=== PATIENT | male | born 1945 | race Two or more races ===

== ENCOUNTER 2020-03-20 14:51 | Inpatient (IN) | payer MEDICARE, MEDICAID ==
[~2020-03-20] VITALS: Ht 170.2 cm; Wt 69.9 kg
[2020-03-20] MEDS ORDERED: ATOR40TA70 PO (14:58)
[2020-03-20] MEDS ORDERED: ASPI-1497 PO (14:58)
[2020-03-20] MEDS ORDERED: HYDR12.54 PO (14:58)
[2020-03-20] MEDS ORDERED: LISI-186 PO (14:58)
[2020-03-20] MEDS ORDERED: ASPIRIN 81MG TABLET PO ONE (15:30)
[2020-03-20] MEDS ORDERED: NITROGLYCERIN 0.4MG TABLET SL SL PRN (15:30)
[2020-03-20 15:43] LABS: BASOPHILS % 0.9 % (0.0-2.0); EOSINOPHILS % 3.1 % (0.0-5.0); HEMATOCRIT. 35.3 % (42.0-52.0); HEMOGLOBIN. 11.6 g/dL (14.0-18.0); LYMPHOCYTES % 24.7 % (20.0-50.0); MEAN CORPUSCULAR HEMOGLOBIN 26.4 pg (28.0-32.0); MEAN CORPUSCULAR VOLUME 80.5 fL (80.0-94.0); MEAN PLATELET VOLUME 8.1 fl (7.4-10.4); MONOCYTES % 6.9 % (2.0-8.0); NEUTROPHILS % 64.4 % (40.0-76.0); PLATELET 179 x1000/uL (130-400); RED BLOOD CELL COUNT 4.38 mill/uL (4.7-6.1); RED CELL DISTRIBUTION WIDTH 14.1 % (11.6-14.6)
[2020-03-20 15:50] LABS: PROTHROMBIN TIME 10.3 sec (9.6-11.0)
[2020-03-20 15:52] LABS: CHLORIDE 108 mEq/L (98-107)
[2020-03-20] MEDS ORDERED: METOPROLOL TARTRATE 25MG TABLET PO SCH (18:00)
[2020-03-20] MEDS ORDERED: DOCUSATE SODIUM 100MG CAPSULE PO PRN (22:45)
[2020-03-20] MEDS ORDERED: MAGNESIUM/ALUMINUM HYDROXIDE/SIMETHICONE 30ML UDC PO PRN (22:45)
[2020-03-20] MEDS ORDERED: ACETAMINOPHEN 325MG TABLET PO PRN (22:45)
[2020-03-20] MEDS ORDERED: IPRATROPIUM/ALBUTEROL 0.5-3(2.5)MG/3ML NEB NEB PRN (22:45)
[2020-03-20] MEDS ORDERED: ONDANSETRON HCL 4MG/2ML INJ IV PRN (22:45)
[2020-03-21] VITALS (17 sets, daily range): BP systolic 123–166; BP diastolic 50–74
[2020-03-21] MEDS: ATORVASTATIN CALCIUM 40MG TABLET PO SCH ×2 (00:48→21:27)
[2020-03-21] MEDS ORDERED: SODIUM CHLORIDE 0.9% 1,000 ML IV SCH (04:00)
[2020-03-21 06:26] LABS: CLARITY URINE CLEAR (CLEAR); COLOR URINE YELLOW (YELLOW); KETONES URINE NEGATIVE (NEGATIVE); LEUKOCYTE ESTERASE URINE NEGATIVE (NEGATIVE); NITRITE URINE NEGATIVE (NEGATIVE); OCCULT BLOOD URINE NEGATIVE (NEGATIVE); PH URINE 5.5 (4.5-8.0); PROTEIN URINE 1+ (NEGATIVE); SPECIFIC GRAVITY URINE 1.015 (1.005-1.030); UROBILINOGEN URINE 0.2 E.U./dL (0.2-1.0)
[2020-03-21 06:31] LABS: EOSINOPHILS % 4.9 % (0.0-5.0); HEMATOCRIT. 32.7 % (42.0-52.0); HEMOGLOBIN. 10.9 g/dL (14.0-18.0); LYMPHOCYTES % 28.6 % (20.0-50.0); MEAN CORPUSCULAR HEMOGLOBIN 26.5 pg (28.0-32.0); MEAN CORPUSCULAR VOLUME 79.6 fL (80.0-94.0); MONOCYTES % 8.7 % (2.0-8.0); NEUTROPHILS % 56.8 % (40.0-76.0); RED BLOOD CELL COUNT 4.11 mill/uL (4.7-6.1); RED CELL DISTRIBUTION WIDTH 14.2 % (11.6-14.6)
[2020-03-21 06:35] LABS: *AMPHETAMINES SCREEN URINE NEGATIVE (NEGATIVE); *BARBITURATES SCREEN URINE NEGATIVE (NEGATIVE); *BENZODIAZEPINES SCREEN URINE NEGATIVE (NEGATIVE); *COCAINE SCREEN URINE NEGATIVE (NEGATIVE); METHADONE URINE SCREEN NEGATIVE (NEGATIVE); OPIATES URINE SCREEN NEGATIVE (NEGATIVE)
[2020-03-21 06:36] LABS: CANNABINOID URINE SCREEN NEGATIVE (NEGATIVE); PHENCYCLIDINE URINE SCREEN NEGATIVE (NEGATIVE)
[2020-03-21 06:42] LABS: CHLORIDE 108 mEq/L (98-107)
[2020-03-21 06:49] LABS: LDL CHOLESTEROL 85 mg/dL (5-100)
[2020-03-21 06:51] LABS: CREATINE KINASE 111 IU/L (39-308); HDL CHOLESTEROL 36 mg/dL (40-59)
[2020-03-21 06:55] LABS: CREATINE KINASE MB FRACTION 1.4 ng/mL (0.5-3.6)
[2020-03-21] MEDS ORDERED: FENTANYL CITRATE/PF 50MCG/ML 5ML VIAL ONE (07:49)
[2020-03-21] MEDS ORDERED: MIDAZOLAM HCL 5 MG/5 ML VIAL ONE (07:49)
[2020-03-21] MEDS ORDERED: LIDOCAINE HCL 1% 20ML VIAL (Pyxis) INJ ONE (07:49)
[2020-03-21] MEDS ORDERED: IODIXANOL 320MG/ML 100 ML BOTTLE IV ONE (07:50)
[2020-03-21] MEDS ORDERED: VERAPAMIL HCL 2.5 MG/1 ML 2ML VIAL IV ONE (07:51)
[2020-03-21 08:15] LABS: PLATELET 157 x1000/uL (130-400)
[2020-03-21] MEDS ORDERED: LOSA25TA26 MT (09:08)
[2020-03-21] MEDS ORDERED: HYDR12.54 MT (09:08)
[2020-03-21] MEDS ORDERED: ATOR20TA65 MT (09:08)
[2020-03-21] MEDS: ASPIRIN 81MG EC TABLET PO SCH (09:17)
[2020-03-21] MEDS: SODIUM CHLORIDE 0.45% 1,000 ML IV SCH ×2 (09:32→18:39)
[2020-03-21 15:12] LABS: CREATINE KINASE 101 IU/L (39-308); CREATINE KINASE MB FRACTION 1.4 ng/mL (0.5-3.6)
[2020-03-21] MEDS ORDERED: CLONIDINE 0.1MG TABLET PO PRN (22:00)
[2020-03-22] VITALS (32 sets, daily range): BP systolic 112–181; BP diastolic 58–82
[2020-03-22] MEDS: SODIUM CHLORIDE 0.45% 1,000 ML IV SCH ×2 (02:53→09:49)
[2020-03-22 05:53] LABS: BASOPHILS % 0.9 % (0.0-2.0); EOSINOPHILS % 4.8 % (0.0-5.0); HEMATOCRIT. 32.3 % (42.0-52.0); HEMOGLOBIN. 10.8 g/dL (14.0-18.0); LYMPHOCYTES % 31.8 % (20.0-50.0); MEAN CORPUSCULAR HEMOGLOBIN 26.5 pg (28.0-32.0); MEAN CORPUSCULAR VOLUME 79.7 fL (80.0-94.0); MEAN PLATELET VOLUME 8.6 fl (7.4-10.4); MONOCYTES % 8.1 % (2.0-8.0); NEUTROPHILS % 54.4 % (40.0-76.0); PLATELET 151 x1000/uL (130-400); RED BLOOD CELL COUNT 4.06 mill/uL (4.7-6.1); RED CELL DISTRIBUTION WIDTH 13.9 % (11.6-14.6)
[2020-03-22 06:01] LABS: CHLORIDE 108 mEq/L (98-107)
[2020-03-22 06:07] LABS: PHOSPHORUS 3.8 mg/dL (2.5-4.9)
[2020-03-22] MEDS: ASPIRIN 81MG EC TABLET PO SCH (07:27)
[2020-03-22] MEDS ORDERED: ENOXAPARIN 30MG/0.3ML SYR SUBCUT SCH (09:00)
[2020-03-22] MEDS ORDERED: ENOXAPARIN 60MG/0.6ML SYR SUBCUT NR (10:30)
[2020-03-22] MEDS: PANTOPRAZOLE 40MG DR TABLET PO SCH (11:01)
[2020-03-22] MEDS: NITROGLYCERIN OINT 1GM/INCH UDPKT TD SCH ×2 (11:02→16:56)
[2020-03-22] MEDS ORDERED: EPOETIN ALFA-EPBX 10,000 UNIT/ML VIAL SUBCUT NR (14:00)
[2020-03-22] MEDS: ATORVASTATIN CALCIUM 40MG TABLET PO SCH (20:51)
[2020-03-23] VITALS (49 sets, daily range): BP systolic 101–179; BP diastolic 54–97
[2020-03-23] MEDS: NITROGLYCERIN OINT 1GM/INCH UDPKT TD SCH ×5 (00:05→22:04)
[2020-03-23 06:15] LABS: BASOPHILS % 0.7 % (0.0-2.0); HEMATOCRIT. 32.7 % (42.0-52.0); HEMOGLOBIN. 10.9 g/dL (14.0-18.0); LYMPHOCYTES % 28.3 % (20.0-50.0); MEAN CORPUSCULAR HEMOGLOBIN 26.7 pg (28.0-32.0); MEAN CORPUSCULAR VOLUME 80.1 fL (80.0-94.0); MEAN PLATELET VOLUME 8.2 fl (7.4-10.4); MONOCYTES % 8.8 % (2.0-8.0); NEUTROPHILS % 58.2 % (40.0-76.0); PLATELET 161 x1000/uL (130-400); RED BLOOD CELL COUNT 4.09 mill/uL (4.7-6.1)
[2020-03-23 06:27] LABS: PHOSPHORUS 3.5 mg/dL (2.5-4.9)
[2020-03-23] MEDS: ASPIRIN 81MG EC TABLET PO SCH (08:37)
[2020-03-23] MEDS: PANTOPRAZOLE 40MG DR TABLET PO SCH (08:38)
[2020-03-23] MEDS ORDERED: ENOXAPARIN 80MG/0.8ML SYR SUBCUT SCH (09:00)
[2020-03-23] MEDS: AMLODIPINE 10MG TABLET PO SCH (12:02)
[2020-03-23] MEDS ORDERED: ACETAMINOPHEN 325MG TABLET PO PRN (18:45)
[2020-03-23] MEDS ORDERED: HEPARIN 25,000 UNITS PREMIX 250 ML IV SCH ×2 (18:45→19:15)
[2020-03-23] MEDS ORDERED: HEPARIN BOLUS PRN aPTT <30 IV (19:15)
[2020-03-23] MEDS ORDERED: HEPARIN BOLUS PRN aPTT 30-44 IV (19:15)
[2020-03-23] MEDS ORDERED: HEPARIN 60 UNITS/KG BOLUS IV NR (19:30)
[2020-03-23] MEDS ORDERED: CHLORHEXIDINE GLUCONATE 4% EXTERNAL USE TOP SCH (21:00)
[2020-03-23] MEDS ORDERED: ASCORBIC ACID 500 MG TABLET PO SCH (21:00)
[2020-03-23] MEDS ORDERED: DOCUSATE SODIUM 100MG CAPSULE PO SCH (21:00)
[2020-03-23] MEDS ORDERED: BISACODYL 10MG SUPP PR PRN (21:00)
[2020-03-23] MEDS: ATORVASTATIN CALCIUM 40MG TABLET PO SCH (21:42)
[2020-03-23] MEDS: HYDRALAZINE HCL 50MG TABLET PO SCH (21:42)
[2020-03-23] MEDS: ALLOPURINOL 300 MG TABLET PO SCH (21:43)
[2020-03-24] VITALS (59 sets, daily range): BP systolic 83–185; BP diastolic 35–119
[2020-03-24] MEDS: NITROGLYCERIN OINT 1GM/INCH UDPKT TD SCH ×2 (04:57→08:52)
[2020-03-24] MEDS: ALLOPURINOL 300 MG TABLET PO SCH (04:57)
[2020-03-24 05:11] LABS: *CREATININE RANDOM URINE 36.5 mg/dL (Not Estab.); MICROALBUMIN RANDOM URINE 106.9 ug/mL (Not Estab.)
[2020-03-24 05:27] LABS: BASOPHILS % 0.7 % (0.0-2.0); EOSINOPHILS % 3.7 % (0.0-5.0); HEMATOCRIT. 34.7 % (42.0-52.0); HEMOGLOBIN. 11.4 g/dL (14.0-18.0); LYMPHOCYTES % 27.3 % (20.0-50.0); MEAN CORPUSCULAR HEMOGLOBIN 26.5 pg (28.0-32.0); MEAN CORPUSCULAR VOLUME 80.4 fL (80.0-94.0); MEAN PLATELET VOLUME 8.6 fl (7.4-10.4); MONOCYTES % 8.3 % (2.0-8.0); PLATELET 151 x1000/uL (130-400); RED BLOOD CELL COUNT 4.32 mill/uL (4.7-6.1); RED CELL DISTRIBUTION WIDTH 14.5 % (11.6-14.6)
[2020-03-24 05:34] LABS: CHLORIDE 107 mEq/L (98-107)
[2020-03-24] MEDS ORDERED: SKIN ADHESIVE 0.7 GM EA TOP ONE (05:58)
[2020-03-24] MEDS ORDERED: THROMBIN (BOVINE) 5000 UNITS/VIAL TOP ONE (05:58)
[2020-03-24] MEDS ORDERED: BACITRACIN 50,000 UNITS/VIAL ONE (05:59)
[2020-03-24] MEDS ORDERED: NICARDIPINE 50 MG in NS 250 ML IV SCH (06:00)
[2020-03-24] MEDS ORDERED: PAPAVERINE HCL 180MG in SODIUM CHLORIDE 0.9% 24ML IV SCH (06:00)
[2020-03-24] MEDS ORDERED: AMINOCAPROIC ACID 5,000 MG in SODIUM CHLORIDE 0.9% 230 ML IV SCH (06:00)
[2020-03-24] MEDS ORDERED: EPINEPHRINE 5 MG in DEXT 5% WATER 245 ML IV SCH (06:00)
[2020-03-24] MEDS ORDERED: CEFAZOLIN 2,000 MG in DEXT 5% WATER 100 ML IV SCH (06:00)
[2020-03-24] MEDS ORDERED: DEL NIDO ELECTROLYTE-S(PH 7.4) 1,000 ML IV SCH ×2 (06:00)
[2020-03-24] MEDS ORDERED: INSULIN REGULAR (DRIP) 100 UNITS in SODIUM CHLORIDE 0.9% 99 ML IV SCH (06:00)
[2020-03-24] MEDS ORDERED: NOREPINEPHRINE 8 MG in DEXT 5% WATER 242 ML IV SCH (06:00)
[2020-03-24] MEDS ORDERED: HEPARIN 1000 UNITS/ML 10ML ONE ×2 (06:03→08:00)
[2020-03-24] MEDS ORDERED: ACETAMINOPHEN 500MG TABLET ONE (06:04)
[2020-03-24] MEDS ORDERED: DOPAMINE 400MG/250ML PREMIX 250 ML IV ONE (06:04)
[2020-03-24] MEDS ORDERED: ROCURONIUM BROMIDE 10MG/ML VIAL 5ML IV ONE ×2 (06:32→09:38)
[2020-03-24] MEDS ORDERED: PROPOFOL 200MG/20ML VIAL IV ONE (06:32)
[2020-03-24] MEDS ORDERED: MIDAZOLAM HCL 5 MG/ML VIAL ONE (06:33)
[2020-03-24] MEDS ORDERED: HYDROMORPHONE HCL/PF 2MG/ML (OR) ONE ×2 (06:33→08:10)
[2020-03-24] MEDS ORDERED: DEXAMETHASONE 4MG/ML 1ML VIAL ONE (06:33)
[2020-03-24] MEDS ORDERED: POTASSIUM CHLORIDE 40MEQ/20ML INJ IV ONE (07:01)
[2020-03-24] MEDS ORDERED: CEFAZOLIN SODIUM 1000MG/VIAL ONE (07:33)
[2020-03-24] MEDS ORDERED: PROPOFOL 10MG/ML 100ML 100 ML IV ONE (07:58)
[2020-03-24] MEDS ORDERED: MAGNESIUM SULFATE 5GM/10ML VIAL IV ONE (08:00)
[2020-03-24] MEDS ORDERED: LIDOCAINE HCL 2% 5ML SYRINGE IV ONE (08:00)
[2020-03-24] MEDS ORDERED: HEPARIN 10,000 UNITS/ML VIAL ONE (08:00)
[2020-03-24] MEDS ORDERED: MANNITOL 20% (20GM/100ML) BAG 500ML PREMIX IV ONE (08:00)
[2020-03-24] MEDS ORDERED: ALBUMIN HUMAN 25GM/100ML (25%) IV ONE (08:00)
[2020-03-24] MEDS ORDERED: AMINOCAPROIC ACID 250 MG/ML 20ML VIAL ONE ×2 (08:00→09:56)
[2020-03-24] MEDS ORDERED: CALCIUM CHLORIDE 1GM/10ML SYR IV ONE ×2 (08:00→11:24)
[2020-03-24] MEDS ORDERED: ALBUMIN HUMAN 25GM/500ML (5%) IV ONE (08:00)
[2020-03-24] MEDS ORDERED: SODIUM BICARBONATE 8.4% 1 MEQ/ML 50ML SYR IV ONE ×2 (08:00→15:51)
[2020-03-24] MEDS ORDERED: METHYLENE BLUE 50 MG/10 ML AMP IV ONE (08:10)
[2020-03-24] MEDS ORDERED: SODIUM CHLORIDE 0.9% 10ML VIAL ONE (08:27)
[2020-03-24] MEDS: AMLODIPINE 10MG TABLET PO SCH (08:52)
[2020-03-24] MEDS: ASPIRIN 81MG EC TABLET PO SCH (08:52)
[2020-03-24] MEDS: HYDRALAZINE HCL 50MG TABLET PO SCH (08:52)
[2020-03-24] MEDS: PANTOPRAZOLE 40MG DR TABLET PO SCH (08:52)
[2020-03-24] MEDS ORDERED: CHLORHEXIDINE GLUCONATE 4% EXTERNAL USE TOP SCH (09:00)
[2020-03-24] MEDS ORDERED: FUROSEMIDE 100MG/10ML VIAL ONE (09:38)
[2020-03-24] MEDS ORDERED: PROTAMINE SULFATE 10MG/ML VIAL 25ML IV ONE (11:24)
[2020-03-24 12:53] LABS: MEAN CORPUSCULAR HEMOGLOBIN 26.4 pg (28.0-32.0); MEAN CORPUSCULAR VOLUME 80.6 fL (80.0-94.0); MEAN PLATELET VOLUME 7.9 fl (7.4-10.4); PLATELET 102 x1000/uL (130-400); RED BLOOD CELL COUNT 2.51 mill/uL (4.7-6.1); RED CELL DISTRIBUTION WIDTH 14.1 % (11.6-14.6)
[2020-03-24 12:59] LABS: CHLORIDE 120 mEq/L (98-107)
[2020-03-24 13:03] LABS: HEMOGLOBIN. 6.6 g/dL (14.0-18.0)
[2020-03-24 13:04] LABS: HEMATOCRIT. 20.2 % (42.0-52.0)
[2020-03-24] MEDS ORDERED: OXYCODONE HCL/ACETAMINOPHEN 5/325MG TABLET PO PRN ×2 (13:15)
[2020-03-24] MEDS ORDERED: MAGNESIUM 2 G PREMIX 50 ML IV PRN (13:15)
[2020-03-24] MEDS ORDERED: NOREPINEPHRINE 8 MG in DEXT 5% WATER 242 ML IV PRN (13:15)
[2020-03-24] MEDS ORDERED: ALBUMIN HUMAN 12.5G/250ML (5%) IV PRN (13:15)
[2020-03-24] MEDS ORDERED: MAGNESIUM SULFATE 3 GM in DEXT 5% WATER 100 ML IV PRN (13:15)
[2020-03-24] MEDS ORDERED: ACETAMINOPHEN 325MG TABLET PO PRN (13:15)
[2020-03-24] MEDS ORDERED: MAGNESIUM 1 G PREMIX 100 ML IV PRN (13:15)
[2020-03-24] MEDS ORDERED: MORPHINE SULFATE 2 MG/ML CPJ (NOT FOR IM USE) IV PRN (13:15)
[2020-03-24] MEDS ORDERED: ONDANSETRON HCL 4MG/2ML INJ IV PRN (13:15)
[2020-03-24] MEDS ORDERED: SODIUM CHLORIDE 0.9% 500 ML IV PRN (13:15)
[2020-03-24] MEDS ORDERED: KCL 10MEQ/50ML PREMIX 200 ML IV PRN (13:30)
[2020-03-24] MEDS ORDERED: KCL 10MEQ/50ML PREMIX 100 ML IV PRN (13:30)
[2020-03-24] MEDS ORDERED: KCL 10MEQ/50ML PREMIX 150 ML IV PRN (13:30)
[2020-03-24 13:42] LABS: BG BASE EXCESS -1.8 mmol/L (-2.0-2.0); BG CARBOXYHEMOGLOBIN 0.4 % (0.5-1.5); BG DEOXYHEMOGLOBIN 1.6 % (0.0-5.0); BG FRACTION INSPIRED OXYGEN 100; BG HCO3 ACT 24.4 mmol/L (22.0-26.0); BG METHEMOGLOBIN 0.6 % (0.0-1.5); BG OXYGEN SATURATION 98.4 % (92.0-98.5); BG OXYHEMOGLOBIN 97.4 % (94.0-97.0); BG PCO2 49.1 mmHg (35.0-45.0); BG PH 7.314 (7.350-7.450); BG PO2 143.2 mmHg (75.0-100.0); BG SAMPLE SITE ALINE; BG TOTAL HEMOGLOBIN 8.2 g/dL (12.0-18.0); BG TOTAL RESPIRATORY RATE 12 b/min; BG VENT MODE VENT - SIMV
[2020-03-24 13:43] LABS: INR 1.3; PROTHROMBIN TIME 13.3 sec (9.6-11.0)
[2020-03-24 13:50] LABS: PHOSPHORUS 0.7 mg/dL (2.5-4.9)
[2020-03-24 13:53] LABS: BASOPHILS % 0.2 % (0.0-2.0); EOSINOPHILS % 0.1 % (0.0-5.0); HEMATOCRIT. 24.1 % (42.0-52.0); LYMPHOCYTES % 8.1 % (20.0-50.0); MEAN CORPUSCULAR HEMOGLOBIN 26.6 pg (28.0-32.0); MEAN CORPUSCULAR VOLUME 80.3 fL (80.0-94.0); NEUTROPHILS % 88.6 % (40.0-76.0); PLATELET 115 x1000/uL (130-400); RED CELL DISTRIBUTION WIDTH 14.2 % (11.6-14.6)
[2020-03-24 13:59] LABS: PLATELET ESTIMATE DECREASED
[2020-03-24] MEDS ORDERED: CALCIUM GLUCONATE 1,000 MG in DEXT 5% WATER 90 ML IV PRN (14:00)
[2020-03-24 14:02] LABS: INR 1.1; PARTIAL THROMBOPLASTIN TIME 32.2 sec (23.4-31.0); PROTHROMBIN TIME 11.4 sec (9.6-11.0)
[2020-03-24] MEDS: DEXT 5%/0.45% NACL 1000ML 1,000 ML IV SCH (14:17)
[2020-03-24] MEDS: DOPAMINE 400MG/250ML PREMIX 250 ML IV PRN (14:22)
[2020-03-24 15:11] LABS: A/G RATIO 1.1 (0.7-1.7); ALBUMIN 3.3 g/dL (2.9-4.4); ALPHA-1-GLOBULIN 0.2 g/dL (0.0-0.4); ALPHA-2-GLOBULIN 0.7 g/dL (0.4-1.0); BETA GLOBULIN 1.1 g/dL (0.7-1.3); M-SPIKE Not Observed g/dL (Not Observed); TOTAL PROTEIN SERUM 6.3 g/dL (6.0-8.5)
[2020-03-24] MEDS: CEFAZOLIN 1000MG PREMIX 50 ML IV SCH (15:30)
[2020-03-24] MEDS ORDERED: CEFAZOLIN 1000MG PREMIX 50 ML IV SCH (15:30)
[2020-03-24 15:40] LABS: BG BASE EXCESS -4.1 mmol/L (-2.0-2.0); BG CARBOXYHEMOGLOBIN 0.3 % (0.5-1.5); BG DEOXYHEMOGLOBIN 1.2 % (0.0-5.0); BG FRACTION INSPIRED OXYGEN 100; BG HCO3 ACT 21.3 mmol/L (22.0-26.0); BG METHEMOGLOBIN 0.2 % (0.0-1.5); BG OXYGEN SATURATION 98.8 % (92.0-98.5); BG OXYHEMOGLOBIN 98.3 % (94.0-97.0); BG PH 7.344 (7.350-7.450); BG PO2 235.4 mmHg (75.0-100.0); BG SAMPLE SITE ALINE; BG TOTAL HEMOGLOBIN 9.1 g/dL (12.0-18.0); BG VENT MODE VENT - SIMV
[2020-03-24] MEDS ORDERED: SODIUM BICARBONATE 8.4% 1 MEQ/ML 50ML SYR IV NR (15:45)
[2020-03-24] MEDS: IPRATROPIUM/ALBUTEROL 0.5-3(2.5)MG/3ML NEB HHN SCH ×2 (15:49→20:27)
[2020-03-24 16:27] LABS: BG BASE EXCESS 3.5 mmol/L (-2.0-2.0); BG CARBOXYHEMOGLOBIN 0.3 % (0.5-1.5); BG DEOXYHEMOGLOBIN 2.2 % (0.0-5.0); BG FRACTION INSPIRED OXYGEN 60; BG HCO3 ACT 28.8 mmol/L (22.0-26.0); BG METHEMOGLOBIN 0.3 % (0.0-1.5); BG OXYGEN SATURATION 97.8 % (92.0-98.5); BG OXYHEMOGLOBIN 97.2 % (94.0-97.0); BG PH 7.396 (7.350-7.450); BG PO2 118.5 mmHg (75.0-100.0); BG SAMPLE SITE ALINE; BG TOTAL HEMOGLOBIN 8.3 g/dL (12.0-18.0); BG VENT MODE VENT - SIMV
[2020-03-24] MEDS ORDERED: DOCUSATE SODIUM 100MG CAPSULE PO SCH (17:00)
[2020-03-24 17:39] LABS: BG BASE EXCESS 0.3 mmol/L (-2.0-2.0); BG CARBOXYHEMOGLOBIN 0.3 % (0.5-1.5); BG DEOXYHEMOGLOBIN 4.3 % (0.0-5.0); BG FRACTION INSPIRED OXYGEN 40; BG HCO3 ACT 25.1 mmol/L (22.0-26.0); BG METHEMOGLOBIN 0.2 % (0.0-1.5); BG OXYGEN SATURATION 95.7 % (92.0-98.5); BG OXYHEMOGLOBIN 95.2 % (94.0-97.0); BG PCO2 41.2 mmHg (35.0-45.0); BG PH 7.403 (7.350-7.450); BG PO2 86.2 mmHg (75.0-100.0); BG SAMPLE SITE ALINE; BG TOTAL HEMOGLOBIN 8.5 g/dL (12.0-18.0); BG VENT MODE VENT - CPAP
[2020-03-24] MEDS: MAGNESIUM HYDROXIDE 400MG/5ML 30ML UDC PO SCH ×2 (18:00→20:00)
[2020-03-24 19:25] LABS: HEMOGLOBIN. 8.8 g/dL (14.0-18.0); MEAN CORPUSCULAR HEMOGLOBIN 27.5 pg (28.0-32.0); MEAN CORPUSCULAR VOLUME 81.3 fL (80.0-94.0); MEAN PLATELET VOLUME 8.5 fl (7.4-10.4); PLATELET 120 x1000/uL (130-400); RED CELL DISTRIBUTION WIDTH 14.7 % (11.6-14.6)
[2020-03-24 19:57] LABS: PHOSPHORUS 3.2 mg/dL (2.5-4.9)
[2020-03-24 20:08] LABS: PLATELET ESTIMATE DECREASED
[2020-03-24] MEDS: DOCUSATE SODIUM 100MG CAPSULE PO SCH (21:00)
[2020-03-25] VITALS (88 sets, daily range): BP systolic 48–165; BP diastolic 13–66
[2020-03-25] MEDS: MAGNESIUM HYDROXIDE 400MG/5ML 30ML UDC PO SCH ×6 (00:04→21:42)
[2020-03-25] MEDS: IPRATROPIUM/ALBUTEROL 0.5-3(2.5)MG/3ML NEB HHN SCH ×6 (00:33→20:54)
[2020-03-25] MEDS: HYDROCODONE/ACETAMINOPHEN 5/325MG TABLET PO PRN ×3 (01:02→13:08)
[2020-03-25 06:09] LABS: PHOSPHORUS 4.5 mg/dL (2.5-4.9)
[2020-03-25 06:32] LABS: BASOPHILS % 0.1 % (0.0-2.0); HEMATOCRIT. 28.2 % (42.0-52.0); HEMOGLOBIN. 9.2 g/dL (14.0-18.0); LYMPHOCYTES % 9.9 % (20.0-50.0); MEAN CORPUSCULAR HEMOGLOBIN 27.7 pg (28.0-32.0); MEAN CORPUSCULAR VOLUME 84.5 fL (80.0-94.0); MEAN PLATELET VOLUME 9.2 fl (7.4-10.4); PLATELET 125 x1000/uL (130-400); RED BLOOD CELL COUNT 3.34 mill/uL (4.7-6.1); RED CELL DISTRIBUTION WIDTH 15.8 % (11.6-14.6)
[2020-03-25] MEDS: CEFAZOLIN 1000MG PREMIX 50 ML IV SCH ×2 (07:14)
[2020-03-25 08:42] LABS: BG BASE EXCESS -2.9 mmol/L (-2.0-2.0); BG CARBOXYHEMOGLOBIN 0.3 % (0.5-1.5); BG DEOXYHEMOGLOBIN 5.1 % (0.0-5.0); BG FRACTION INSPIRED OXYGEN 40; BG HCO3 ACT 22.2 mmol/L (22.0-26.0); BG METHEMOGLOBIN 0.3 % (0.0-1.5); BG OXYGEN SATURATION 94.9 % (92.0-98.5); BG OXYHEMOGLOBIN 94.3 % (94.0-97.0); BG PH 7.363 (7.350-7.450); BG PO2 80.9 mmHg (75.0-100.0); BG SAMPLE SITE ALINE; BG VENT MODE COOL AEROSOL
[2020-03-25] MEDS: DOCUSATE SODIUM 100MG CAPSULE PO SCH ×2 (09:36→16:12)
[2020-03-25] MEDS: FAMOTIDINE 20MG/2ML VIAL IV SCH (09:36)
[2020-03-25] MEDS: DEXT 5%/0.45% NACL 1000ML 1,000 ML IV SCH (10:40)
[2020-03-25] MEDS: BLOOD SUGAR DIAGNOSTIC STRIP TEST SCH ×12 (11:00→22:51)
[2020-03-25] MEDS ORDERED: DEXTROSE 50% WATER 50ML SYRINGE IV PRN (11:00)
[2020-03-25] MEDS ORDERED: INSULIN REGULAR (DRIP) 100 UNITS in SODIUM CHLORIDE 0.9% 99 ML IV SCH (11:00)
[2020-03-25] MEDS: DOPAMINE 400MG/250ML PREMIX 250 ML IV PRN (13:21)
[2020-03-25] MEDS: ASPIRIN 81MG TABLET PO SCH (16:12)
[2020-03-25] MEDS: IRON SUCROSE COMPLEX 100 MG/5 ML ML IV SCH (17:24)
[2020-03-25] MEDS: THROAT LOZENGES-BENZOCAINE/MENTH/CETYLPYRD CL LOZENGES MM PRN (18:08)
[2020-03-25] MEDS: DEXTROSE 50% WATER 50ML SYRINGE IV PRN (20:59)
[2020-03-25] MEDS ORDERED: EPOETIN ALFA-EPBX 10,000 UNIT/ML VIAL SUBCUT NR (21:00)
[2020-03-26] VITALS (68 sets, daily range): BP systolic 68–131; BP diastolic 44–67
[2020-03-26] MEDS: BLOOD SUGAR DIAGNOSTIC STRIP TEST SCH ×23 (00:41→23:38)
[2020-03-26] MEDS: MAGNESIUM HYDROXIDE 400MG/5ML 30ML UDC PO SCH ×3 (00:53→08:00)
[2020-03-26] MEDS: IPRATROPIUM/ALBUTEROL 0.5-3(2.5)MG/3ML NEB HHN SCH ×6 (01:02→20:08)
[2020-03-26] MEDS: DEXT 5%/0.45% NACL 1000ML 1,000 ML IV SCH (05:26)
[2020-03-26 06:35] LABS: BASOPHILS % 0.1 % (0.0-2.0); HEMATOCRIT. 21.4 % (42.0-52.0); MEAN CORPUSCULAR HEMOGLOBIN 27.5 pg (28.0-32.0); MEAN CORPUSCULAR VOLUME 83.8 fL (80.0-94.0); MEAN PLATELET VOLUME 9.3 fl (7.4-10.4); MONOCYTES % 9.4 % (2.0-8.0); NEUTROPHILS % 78.5 % (40.0-76.0); PLATELET 95 x1000/uL (130-400); RED BLOOD CELL COUNT 2.55 mill/uL (4.7-6.1); RED CELL DISTRIBUTION WIDTH 15.5 % (11.6-14.6)
[2020-03-26 06:53] LABS: PHOSPHORUS 5.1 mg/dL (2.5-4.9)
[2020-03-26] MEDS: ASPIRIN 81MG TABLET PO SCH (09:18)
[2020-03-26] MEDS: DOCUSATE SODIUM 100MG CAPSULE PO SCH ×2 (09:19→17:57)
[2020-03-26] MEDS: FAMOTIDINE 20MG/2ML VIAL IV SCH (09:19)
[2020-03-26] MEDS: IRON SUCROSE COMPLEX 100 MG/5 ML ML IV SCH (17:57)
[2020-03-26] MEDS: INSULIN REGULAR (DRIP) 100 UNITS in SODIUM CHLORIDE 0.9% 99 ML IV SCH (18:04)
[2020-03-26] MEDS: DEXTROSE 50% WATER 50ML SYRINGE IV PRN (23:52)
[2020-03-27] VITALS (51 sets, daily range): BP systolic 92–152; BP diastolic 50–91
[2020-03-27] MEDS: IPRATROPIUM/ALBUTEROL 0.5-3(2.5)MG/3ML NEB HHN SCH ×6 (00:09→20:08)
[2020-03-27] MEDS: BLOOD SUGAR DIAGNOSTIC STRIP TEST SCH ×22 (00:36→23:00)
[2020-03-27 06:20] LABS: BASOPHILS % 0.2 % (0.0-2.0); EOSINOPHILS % 0.7 % (0.0-5.0); HEMOGLOBIN. 7.8 g/dL (14.0-18.0); LYMPHOCYTES % 16.2 % (20.0-50.0); MEAN CORPUSCULAR HEMOGLOBIN 28.5 pg (28.0-32.0); MEAN CORPUSCULAR VOLUME 84.3 fL (80.0-94.0); MEAN PLATELET VOLUME 9.6 fl (7.4-10.4); MONOCYTES % 10.1 % (2.0-8.0); NEUTROPHILS % 72.8 % (40.0-76.0); PLATELET 89 x1000/uL (130-400); RED BLOOD CELL COUNT 2.73 mill/uL (4.7-6.1); RED CELL DISTRIBUTION WIDTH 15.9 % (11.6-14.6)
[2020-03-27 06:34] LABS: PHOSPHORUS 3.8 mg/dL (2.5-4.9)
[2020-03-27] MEDS: FAMOTIDINE 20MG/2ML VIAL IV SCH (09:38)
[2020-03-27] MEDS: DOCUSATE SODIUM 100MG CAPSULE PO SCH ×2 (09:38→18:02)
[2020-03-27] MEDS: ASPIRIN 81MG TABLET PO SCH (09:38)
[2020-03-27] MEDS: IRON SUCROSE COMPLEX 100 MG/5 ML ML IV SCH (18:02)
[2020-03-28] VITALS (71 sets, daily range): BP systolic 94–167; BP diastolic 50–80
[2020-03-28] MEDS: IPRATROPIUM/ALBUTEROL 0.5-3(2.5)MG/3ML NEB HHN SCH ×6 (00:16→20:24)
[2020-03-28] MEDS: BLOOD SUGAR DIAGNOSTIC STRIP TEST SCH ×11 (00:59→21:38)
[2020-03-28] MEDS: INSULIN REGULAR (DRIP) 100 UNITS in SODIUM CHLORIDE 0.9% 99 ML IV SCH (01:19)
[2020-03-28 06:04] LABS: BASOPHILS % 0.1 % (0.0-2.0); EOSINOPHILS % 2.6 % (0.0-5.0); HEMATOCRIT. 25.8 % (42.0-52.0); HEMOGLOBIN. 8.6 g/dL (14.0-18.0); LYMPHOCYTES % 18.1 % (20.0-50.0); MEAN CORPUSCULAR HEMOGLOBIN 28.6 pg (28.0-32.0); MEAN CORPUSCULAR VOLUME 85.4 fL (80.0-94.0); MONOCYTES % 11.2 % (2.0-8.0); PLATELET 107 x1000/uL (130-400); RED BLOOD CELL COUNT 3.02 mill/uL (4.7-6.1); RED CELL DISTRIBUTION WIDTH 15.6 % (11.6-14.6)
[2020-03-28 06:20] LABS: PHOSPHORUS 3.3 mg/dL (2.5-4.9)
[2020-03-28] MEDS: FAMOTIDINE 20MG/2ML VIAL IV SCH (08:16)
[2020-03-28] MEDS: DOCUSATE SODIUM 100MG CAPSULE PO SCH ×2 (08:16→17:37)
[2020-03-28] MEDS: ASPIRIN 81MG TABLET PO SCH (08:16)
[2020-03-28] MEDS: NITROGLYCERIN 0.4MG TABLET SL SL PRN ×2 (10:24→10:34)
[2020-03-28] MEDS ORDERED: AMIODARONE HCL 150 MG in DEXT 5% WATER 100 ML IV NR (11:00)
[2020-03-28] MEDS ORDERED: AMIODARONE HCL 900 MG in DEXT 5% WATER 482 ML IV PRN (11:00)
[2020-03-28] MEDS: THROAT LOZENGES-BENZOCAINE/MENTH/CETYLPYRD CL LOZENGES MM PRN (11:38)
[2020-03-28] MEDS: INSULIN GLARGINE UD 100 UNITS/ML SYR SUBCUT SCH ×2 (11:48→22:26)
[2020-03-28] MEDS: INSULIN LISPRO 100 UNITS/ML SUBCUT SCH ×3 (12:22→21:00)
[2020-03-28] MEDS: IRON SUCROSE COMPLEX 100 MG/5 ML ML IV SCH (17:37)
[2020-03-29] VITALS (44 sets, daily range): BP systolic 94–168; BP diastolic 54–88
[2020-03-29] MEDS: IPRATROPIUM/ALBUTEROL 0.5-3(2.5)MG/3ML NEB HHN SCH ×5 (00:12→16:44)
[2020-03-29 06:28] LABS: BASOPHILS % 0.1 % (0.0-2.0); EOSINOPHILS % 3.1 % (0.0-5.0); HEMATOCRIT. 27.3 % (42.0-52.0); HEMOGLOBIN. 9.2 g/dL (14.0-18.0); MEAN CORPUSCULAR HEMOGLOBIN 29.1 pg (28.0-32.0); MEAN CORPUSCULAR VOLUME 86.1 fL (80.0-94.0); MEAN PLATELET VOLUME 8.8 fl (7.4-10.4); MONOCYTES % 10.6 % (2.0-8.0); NEUTROPHILS % 70.2 % (40.0-76.0); PLATELET 123 x1000/uL (130-400); RED BLOOD CELL COUNT 3.17 mill/uL (4.7-6.1); RED CELL DISTRIBUTION WIDTH 15.8 % (11.6-14.6)
[2020-03-29] MEDS: INSULIN LISPRO 100 UNITS/ML SUBCUT SCH ×4 (08:20→20:25)
[2020-03-29] MEDS: BLOOD SUGAR DIAGNOSTIC STRIP TEST SCH ×4 (08:27→20:25)
[2020-03-29] MEDS: DOCUSATE SODIUM 100MG CAPSULE PO SCH ×2 (08:43→17:28)
[2020-03-29] MEDS: FAMOTIDINE 20MG/2ML VIAL IV SCH (08:43)
[2020-03-29] MEDS: ASPIRIN 81MG TABLET PO SCH (08:43)
[2020-03-29] MEDS: INSULIN GLARGINE UD 100 UNITS/ML SYR SUBCUT SCH ×2 (09:48→21:27)
[2020-03-29] MEDS: AMIODARONE HCL 200 MG TABLET PO SCH ×2 (14:11→21:27)
[2020-03-29] MEDS: IRON SUCROSE COMPLEX 100 MG/5 ML ML IV SCH (17:28)
[2020-03-30] VITALS (13 sets, daily range): BP systolic 96–136; BP diastolic 53–73
[2020-03-30] MEDS: IPRATROPIUM/ALBUTEROL 0.5-3(2.5)MG/3ML NEB HHN SCH ×7 (00:30→20:54)
[2020-03-30] MEDS ORDERED: AMIODARONE HCL 200 MG TABLET PO NR (03:00)
[2020-03-30] MEDS: AMIODARONE HCL 900 MG in DEXT 5% WATER 482 ML IV PRN ×2 (04:01→06:52)
[2020-03-30] MEDS: BLOOD SUGAR DIAGNOSTIC STRIP TEST SCH ×4 (06:11→20:20)
[2020-03-30] MEDS: INSULIN LISPRO 100 UNITS/ML SUBCUT SCH ×4 (06:11→20:20)
[2020-03-30 07:31] LABS: BASOPHILS % 0.2 % (0.0-2.0); EOSINOPHILS % 3.2 % (0.0-5.0); HEMATOCRIT. 27.7 % (42.0-52.0); HEMOGLOBIN. 9.3 g/dL (14.0-18.0); MEAN CORPUSCULAR HEMOGLOBIN 28.9 pg (28.0-32.0); MEAN CORPUSCULAR VOLUME 86.4 fL (80.0-94.0); MEAN PLATELET VOLUME 8.8 fl (7.4-10.4); MONOCYTES % 12.3 % (2.0-8.0); NEUTROPHILS % 68.3 % (40.0-76.0); PLATELET 147 x1000/uL (130-400); RED CELL DISTRIBUTION WIDTH 15.9 % (11.6-14.6)
[2020-03-30 07:40] LABS: PHOSPHORUS 3.8 mg/dL (2.5-4.9)
[2020-03-30] MEDS: DOCUSATE SODIUM 100MG CAPSULE PO SCH ×2 (08:55→17:23)
[2020-03-30] MEDS: ASPIRIN 81MG TABLET PO SCH (08:55)
[2020-03-30] MEDS: FAMOTIDINE 20MG/2ML VIAL IV SCH (08:55)
[2020-03-30] MEDS: INSULIN GLARGINE UD 100 UNITS/ML SYR SUBCUT SCH ×2 (08:56→21:34)
[2020-03-30] MEDS: AMIODARONE HCL 200 MG TABLET PO SCH (09:00)
[2020-03-30] MEDS: THROAT LOZENGES-BENZOCAINE/MENTH/CETYLPYRD CL LOZENGES MM PRN (15:48)
[2020-03-31] VITALS (12 sets, daily range): BP systolic 105–146; BP diastolic 50–72
[2020-03-31] MEDS: IPRATROPIUM/ALBUTEROL 0.5-3(2.5)MG/3ML NEB HHN SCH ×5 (04:32→15:34)
[2020-03-31] MEDS ORDERED: INFLUENZA VACCINE 05/PF 0.5 ML VIAL IM ONE (06:15)
[2020-03-31] MEDS: INSULIN LISPRO 100 UNITS/ML SUBCUT SCH ×4 (06:42→21:00)
[2020-03-31] MEDS: BLOOD SUGAR DIAGNOSTIC STRIP TEST SCH ×4 (06:42→21:15)
[2020-03-31 07:14] LABS: BASOPHILS % 0.5 % (0.0-2.0); EOSINOPHILS % 3.4 % (0.0-5.0); HEMATOCRIT. 26.4 % (42.0-52.0); HEMOGLOBIN. 8.9 g/dL (14.0-18.0); LYMPHOCYTES % 16.7 % (20.0-50.0); MEAN CORPUSCULAR HEMOGLOBIN 29.1 pg (28.0-32.0); MEAN CORPUSCULAR VOLUME 86.3 fL (80.0-94.0); MEAN PLATELET VOLUME 8.9 fl (7.4-10.4); MONOCYTES % 11.6 % (2.0-8.0); NEUTROPHILS % 67.8 % (40.0-76.0); PLATELET 159 x1000/uL (130-400); RED BLOOD CELL COUNT 3.06 mill/uL (4.7-6.1); RED CELL DISTRIBUTION WIDTH 15.8 % (11.6-14.6)
[2020-03-31] MEDS: DOCUSATE SODIUM 100MG CAPSULE PO SCH ×2 (08:50→17:20)
[2020-03-31] MEDS: ASPIRIN 81MG TABLET PO SCH (08:50)
[2020-03-31] MEDS: FAMOTIDINE 20MG/2ML VIAL IV SCH (08:50)
[2020-03-31] MEDS: INSULIN GLARGINE UD 100 UNITS/ML SYR SUBCUT SCH ×2 (09:49→22:14)
[2020-03-31] MEDS: AMIODARONE HCL 900 MG in DEXT 5% WATER 482 ML IV PRN (14:08)
[2020-03-31] MEDS: APIXABAN 2.5 MG TABLET PO SCH (17:19)
[2020-03-31] MEDS: AMIODARONE HCL 200 MG TABLET PO SCH (21:19)
[2020-04-01] VITALS (7 sets, daily range): BP systolic 91–120; BP diastolic 59–84
[2020-04-01] MEDS: IPRATROPIUM/ALBUTEROL 0.5-3(2.5)MG/3ML NEB HHN SCH ×3 (00:44→09:38)
[2020-04-01] MEDS: BLOOD SUGAR DIAGNOSTIC STRIP TEST SCH (06:08)
[2020-04-01 06:38] LABS: BASOPHILS % 0.6 % (0.0-2.0); EOSINOPHILS % 3.3 % (0.0-5.0); HEMATOCRIT. 26.1 % (42.0-52.0); HEMOGLOBIN. 8.7 g/dL (14.0-18.0); LYMPHOCYTES % 16.3 % (20.0-50.0); MEAN CORPUSCULAR HEMOGLOBIN 28.7 pg (28.0-32.0); MEAN PLATELET VOLUME 8.7 fl (7.4-10.4); MONOCYTES % 11.5 % (2.0-8.0); NEUTROPHILS % 68.3 % (40.0-76.0); PLATELET 187 x1000/uL (130-400); RED BLOOD CELL COUNT 3.03 mill/uL (4.7-6.1); RED CELL DISTRIBUTION WIDTH 16.6 % (11.6-14.6)
[2020-04-01] MEDS: INSULIN LISPRO 100 UNITS/ML SUBCUT SCH (07:20)
[2020-04-01] MEDS: INSULIN GLARGINE UD 100 UNITS/ML SYR SUBCUT SCH (09:32)
[2020-04-01] MEDS: DOCUSATE SODIUM 100MG CAPSULE PO SCH (09:33)
[2020-04-01] MEDS: ASPIRIN 81MG TABLET PO SCH (09:33)
[2020-04-01] MEDS: FAMOTIDINE 20MG/2ML VIAL IV SCH (09:33)
[2020-04-01] MEDS: AMIODARONE HCL 200 MG TABLET PO SCH (09:33)
[2020-04-01] MEDS: APIXABAN 2.5 MG TABLET PO SCH (09:33)
[2020-04-01] MEDS ORDERED: AMI2 PO (09:56)
[2020-04-01] MEDS ORDERED: HYDR-4001 MT (09:56)
[2020-04-01] MEDS ORDERED: APIX2.5T PO (09:56)
[2020-04-01] MEDS ORDERED: LANTUSUD SUBCUT (09:56)
[2020-04-01] MEDS ORDERED: ASPI-1160 PO (09:56)
== END 2020-04-01 12:38 | disposition home or self-care (01) | DRG 233 ==
LOC: ER 14:51 → 3WST 17:24 → ENRESERV 21:14 → CVICU 03-22 15:15 → 3WST 03-29 15:48
PROVIDERS: ADMIT Internal Medicine; ATTEND Internal Medicine
PROC: 4A023N7 Measurement of Cardiac Sampling and Pressure, Left Heart, Percutaneous Approach (ICD-10-PCS; principal; 2020-03-21)
PROC: B2111ZZ Fluoroscopy of Multiple Coronary Arteries using Low Osmolar Contrast (ICD-10-PCS; 2020-03-21)
PROC: 02100Z9 Bypass Coronary Artery, One Artery from Left Internal Mammary, Open Approach (ICD-10-PCS; 2020-03-24)
PROC: 021109W Bypass Coronary Artery, Two Arteries from Aorta with Autologous Venous Tissue, Open Approach (ICD-10-PCS; 2020-03-24)
PROC: 06BP4ZZ Excision of Right Saphenous Vein, Percutaneous Endoscopic Approach (ICD-10-PCS; 2020-03-24)
PROC: 5A1221Z Performance of Cardiac Output, Continuous (ICD-10-PCS; 2020-03-24)
PROC: B24BZZ4 Ultrasonography of Heart with Aorta, Transesophageal (ICD-10-PCS; 2020-03-24)
PROC: 30233N1 Transfusion of Nonautologous Red Blood Cells into Peripheral Vein, Percutaneous Approach (ICD-10-PCS; 2020-03-24)
DX: I25.110 Atherosclerotic heart disease of native coronary artery with unstable angina pectoris (principal); J96.01 Acute respiratory failure with hypoxia; I50.32 Chronic diastolic (congestive) heart failure; N17.9 Acute kidney failure, unspecified; I48.92 Unspecified atrial flutter; I13.0 Hypertensive heart and chronic kidney disease with heart failure and stage 1 through stage 4 chronic kidney disease, or unspecified chronic kidney disease; J98.11 Atelectasis; J91.8 Pleural effusion in other conditions classified elsewhere; E87.5 Hyperkalemia; E78.5 Hyperlipidemia, unspecified; G40.909 Epilepsy, unspecified, not intractable, without status epilepticus; N18.30 Chronic kidney disease, stage 3 unspecified; K40.90 Unilateral inguinal hernia, without obstruction or gangrene, not specified as recurrent; E11.22 Type 2 diabetes mellitus with diabetic chronic kidney disease; D50.9 Iron deficiency anemia, unspecified; I25.84 Coronary atherosclerosis due to calcified coronary lesion; D14.2 Benign neoplasm of trachea; R00.1 Bradycardia, unspecified; Z20.828 Contact with and (suspected) exposure to other viral communicable diseases; I48.91 Unspecified atrial fibrillation; E83.41 Hypermagnesemia; D72.829 Elevated white blood cell count, unspecified; E78.00 Pure hypercholesterolemia, unspecified; Z79.4 Long term (current) use of insulin; Z86.73 Personal history of transient ischemic attack (TIA), and cerebral infarction without residual deficits; Z88.0 Allergy status to penicillin; Z79.82 Long term (current) use of aspirin; Z87.891 Personal history of nicotine dependence; Z86.61 Personal history of infections of the central nervous system; Z79.899 Other long term (current) drug therapy
CPT/HCPCS: 36415; 36600; 71045; 76604; 76770; 80048; 80053; 80061; 80305; 81003; 82043; 82375; 82550; 82553; 82570; 82728; 82805; 82962; 83036; 83540; 83550; 83735; 83880; 83935; 84100; 84132; 84155; 84165; 84300; 84443; 84484; 85025; 85384; 86850; 86900; 86920; 87426; 93005; 93306; 93458; 93880; 97110; 97116; 97163; 97166; 97530; 97535; 99291; C1725; C1729; C1751; C1758; C1769; C1887; C1893; J0282; J0690; J0885; J1100; J1170; J1265; J1644; J1650; J1815; J1940; J2250; J2270; J2405; J2440; J2704; J2720; J3010; J3475; J3480; J3490; J7040; J7050; J7060; L3908; P9016; P9041; P9047; Q9967; Q9968